=== PATIENT | female | born 1965 | race Caucasian/White ===

== ENCOUNTER 2018-01-25 06:40 | Day surgery (SDC) | payer OTHER, BC ==
[~2018-01-25] VITALS: Ht 162.6 cm; Wt 80.7 kg
--- NOTE | ~2018-01-25 | OR ---
[facility] [address] [place], [place] [address] Draft DATE OF OPERATION: 01/25/2018 SURGEON: Nancy Solares MD PREOPERATIVE DIAGNOSIS: Vestibulitis, unresponsive to medication. POSTOPERATIVE DIAGNOSIS: Vestibulitis, unresponsive to medication. PROCEDURE: Vestibulectomy. ANESTHESIA: General LMA. ESTIMATED BLOOD LOSS: 40 mL. DRAINS: None. INDICATIONS AND FINDINGS: The patient is a 52-year-old female who has been treated for vestibulitis February of 2015. She has been using topical estrogen cream and has also been on gabapentin, which that dose was maximized without any improvement in her symptoms. The patient is also on Cymbalta 60 mg daily. She has been having more and more discomfort and has required topical lidocaine frequently to manage her discomfort and at this point, she can barely tolerate sitting for any length of time. She has not tolerated Tegretol in the past. Because of the poor response to treatment, the decision was made to proceed with vestibulectomy. At the time of surgery, exam under anesthesia revealed a normal-appearing vestibule. DESCRIPTION OF PROCEDURE: The patient was prepped and draped in the dorsal lithotomy position. The vestibule was excised with the 1st specimen taken from to . This area was outlined with a knife and then undermined and excised. Bleeding points were controlled with cautery. 2-0 Vicryl sutures were used in the deep areas to control some bleeding as well. At the upper aspect, there was some continued bleeding and the sutures were taken, reapproximated the vaginal mucosa with interrupted sutures of the 2-0 Vicryl. Following PATIENT NAME: CRIS LYNCH OPERATIVE REPORT DATE OF : 65 REPORT #: [id number] PHYSICIAN: NANCY SOLARES MD PCP: HODA NEWTON DO REPORT IS CONFIDENTIAL AND NOT TO BE RELEASED WITHOUT AUTHORIZATION [facility] [address] [place], [place] [address] Draft this, the bleeding appeared to be well controlled on that side. This specimen was marked at 11 with a single suture of silk. The specimen was then removed from the patient's right side from 6 to 1 o'clock. Again, this area was outlined with a knife and then undermined and excised with a knife as well. Bleeding points were controlled with cautery. Additionally, 2-0 Vicryl was used to control some bleeding in the deep tissues, especially near the 1 o'clock aspect. Following this, the vestibular tissue had been completely excised, except just around the urethra. The vaginal mucosal edges were reapproximated with a running suture of 3-0 Vicryl. This was carried out from the 1 o'clock position down to the 6 o'clock position. Another suture of the 3-0 Vicryl was used to reapproximate the vaginal mucosa from 11 to 6 o'clock. This is done in a running manner on each side. The specimen at 1 o'clock was marked with two sutures of the silk. Following this, good hemostasis was noted. There was no evidence of any ongoing bleeding. The area was injected with 0.5% Marcaine plain below the surgical site on each side to help control pain. All sponge and needle counts were correct. She tolerated the procedure well and was taken to the recovery room in good condition. MD MARILYNN Adkins/MODL /[id number] Copies: ~ PATIENT NAME: CRIS LYNCH OPERATIVE REPORT DATE OF : 65 REPORT #: [id number] PHYSICIAN: NANCY SOLARES MD PCP: HODA NEWTON DO REPORT IS CONFIDENTIAL AND NOT TO BE RELEASED WITHOUT AUTHORIZATION
[~2018-01-25 06:40] MED LIST: B COMPLEX1 EACH PO; DULOXETINE HCL60 MG PO; ESTRACE42.5 GM VAGINAL; EYE HEALTH ADU1 EACH PO; FISH OIL 1,2001 EAC1 PO; GLUCOSA-CHOND-1 EACH PO; HAIR SKIN NAIL1 EACH PO; LEVOTHYROXINE75 MCG PO; LOPERAMIDE2 MG PO; NEURONTIN300 MG PO; PAXIL40 MG PO; PROBIOTIC1 EAC2 PO; PROTONIX40 MG PO; VITAMIN C500 M1 PO; VITAMIN D2000 UNIT PO; ZOLPIDEM TARTRA10 MG PO; [UNRECOGNIZED DRUG - OTHER] PO
[2018-01-25] MEDS ORDERED: ARMOUR THYROID60 MG PO (07:24)
[2018-01-25] MEDS ORDERED: ARMOUR THYROID15 MG PO (07:25)
[2018-01-25] MEDS ORDERED: FLONASE ALLERG9.9 ML NAS (07:25)
--- NOTE | 2018-01-25 09:49 | NUR ---
01/25/18 0949 Sapna Gutierrez 0937 PT ARRIVES TO PACU, AWAKE. PT SPEAKING IN FULL SENTENCES. O2 IN PLACE AT 6L PER MASK. BREATHING EVEN AND NON LABORED. LR INFUSING. SCD'S. ICE AND NIGHAT PAD TO SURGICAL SITE. 0940 O2 REMOVED AT THIS TIME, PT ON ROOM AIR MAINTAINING SATS 100%. DENIES PAIN OR NAUSEA.
--- NOTE | 2018-01-25 10:32 | NUR ---
[id number]: PT ARRIVES TO DS RM 6 FROM PACU AWAKE AND ALERT. PT PROVIDED ICED WATER, AND REQUESTS SODA. PT ALSO PROVIDED CRACKERS, PUDDING AND WARM BLANKET. PT STATES SHE IS "STARTING TO FEEL SOME PAIN," PO PAIN MEDICATION OFFERED. PT AGREES TO EAT SOME CRACKERS AND PUDDING PRIOR TO TAKING PO NORCO MEDICATION. IN RM AT PT BEDSIDE. CALL LIGHT AT LEFT OF PT. SCD'S IN PLACE.
--- NOTE | 2018-01-25 10:58 | NUR ---
[id number]: PT QUESTIONS WHAT MEDICATIONS SHE WILL BE DISCHARGED HOME WITH. PT STATES THAT SHE "HAS A TENDENCY TO GET NAUSEATED WITH PAIN MEDICATION," AND REQUESTS THAT ZOFRAN ALSO BE ORDERED. RN CONTACTS DR. MCDONALD, WHO GIVES A VERBAL ORDER OF ZOFRAN 8MG ODT 1/2 TO 1 TABLET PO Q8H RPN FOR NAUSEA #30 TORB. NEW ORDER IS CALLED IN TO PT PHARMACY AT [facility] IN [place], [place].
[2018-01-25] MEDS ORDERED: NORCO 5-325 TA1 EACH PO (11:25)
[2018-01-25] MEDS ORDERED: TOPICAINE 5113 GM TOP (11:25)
[2018-01-25] MEDS ORDERED: ZOFRAN ODT4 MG PO (11:26)
--- NOTE | 2018-01-25 12:02 | NUR ---
LE 1110: PT UP TO BR WITH RN ASSIST. PT AMBULATES WELL AND DENIES ANY DIZZINESS OR LIGHTHEADEDNESS. PT VOIDS 500 MLS RED URINE WITH NO CLOTS PRESENT. PT PROVIDED MESH PANTIES AND NEW NIGHAT PAD. [id number]: DC CRITERIA MET. PT IV DC'D. DC INSTRUCTIONS GIVEN IN PRESENCE OF PT AND . ALL QUESTIONS ANSWERED. SCRIPT GIVEN TO PT. PT PROVIDED FRESH ICE PACK AND ICED WATER FOR RIDE HOME. PT DC'S VIA WC FROM [facility] RM 6.
--- NOTE | 2018-01-25 14:02 | NUR ---
PT ALERT, ORIENTED AND SUPPORTED BY HER . PLEASANT VISIT, BERTHA COATES IN TO PREP PT. EXTENDED A BLESSING, WILL FOLLOW NEEDED
== END 2018-01-25 11:50 | disposition home or self-care (01) ==
LOC: DS 06:40
PROVIDERS: Obstetrics & Gynecology
PROC: 0UBMXZZ Excision of Vulva, External Approach (ICD-10-PCS; principal; 2018-01-25 08:45)
DX: N94.810 Vulvar vestibulitis (principal); N39.3 Stress incontinence (female) (male); N87.0 Mild cervical dysplasia; E03.9 Hypothyroidism, unspecified; K58.9 Irritable bowel syndrome, unspecified; K21.9 Gastro-esophageal reflux disease without esophagitis; G47.33 Obstructive sleep apnea (adult) (pediatric); F32.9 Major depressive disorder, single episode, unspecified; Z79.51 Long term (current) use of inhaled steroids; Z79.899 Other long term (current) drug therapy; Z99.89 Dependence on other enabling machines and devices; Z87.891 Personal history of nicotine dependence
CPT/HCPCS: 84703; 85025; J1100; J1885; J2250; J2405; J2704; J2765; J3010; J7120